=== PATIENT | female | born 1975 | race Caucasian/White ===

== ENCOUNTER 2017-03-18 20:37 | Emergency (ER) | payer OTHER ==
[~2017-03-18] VITALS: Ht 180.3 cm; Wt 62.4 kg
[2017-03-18 20:39] VITALS: BP 124/87; PULSE 87; RESP 16; TEMP 98.3; O2SAT 100
[2017-03-18] MEDS ORDERED: IBUPROFEN 600 MG TAB PO ONE (22:45)
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
== END 2017-03-19 00:34 | disposition home or self-care (01) ==
LOC: NEPD 20:37
DX: S16.1XXA Strain of muscle, fascia and tendon at neck level, initial encounter (principal); S09.90XA Unspecified injury of head, initial encounter; Y04.2XXA Assault by strike against or bumped into by another person, initial encounter
CPT/HCPCS: 70450; 72125; 84703